=== PATIENT | female | born 1975 | race Caucasian/White ===

== ENCOUNTER 2016-11-14 09:38 | Observation (INO) ==
[~2016-11-14 09:38] MED LIST: LIDOCAINE W/ SODIUM BICARB 0.5 ML SYR ONE; LIDOCAINE W/ SODIUM BICARB 0.5 ML SYR SUBD ONE; Lactated Ringers 1,000 ML PRIMARY IV ONE; ROCURONIUM 10 MG/1 ML - 5 ML VIAL IVP ONE
[2016-11-14] MEDS ORDERED: MIDAZOLAM 5 MG/1 ML ONE (09:39)
[2016-11-14] MEDS ORDERED: LIDOCAINE MPF 2% - 5 ML (20 MG/1 ML) ONE (09:40)
[2016-11-14] MEDS ORDERED: PROPOFOL 10 MG/1 ML (200 MG/20 ML) VIAL IV ONE (09:40)
[2016-11-14] MEDS ORDERED: fentaNYL Inj 250 MCG/5 ML VIAL ONE (09:40)
[2016-11-14 09:55] LABS: URINE SPECIFIC GRAVITY - MAN 1.002
[2016-11-14] MEDS: Lactated Ringers 1,000 ML PRIMARY IV SCH ×3 (10:00→17:48)
[2016-11-14] MEDS ORDERED: Clindamycin 600mg (Premix) 600 MG/50 ML BAG IV ONE (10:23)
[2016-11-14] MEDS ORDERED: ceFAZolin Inj 1 GM in Sodium Chloride 0.9% 100 ML IV ONE (11:30)
[2016-11-14] MEDS ORDERED: BUPivacaine Inj 0.25% PF - 10ml vial ONE ×2 (11:33→11:35)
[2016-11-14] MEDS ORDERED: HYDROmorphone 2 MG/1 ML ONE (12:12)
[2016-11-14] MEDS ORDERED: EPINEPHrine Inj (1:1,000) 30mg/30ml vial ONE (12:33)
[2016-11-14] MEDS ORDERED: ROCURONIUM 10 MG/1 ML - 5 ML VIAL IVP ONE (13:20)
[2016-11-14] MEDS ORDERED: SUGAMMADEX SODIUM 200 MG/2 ML VIAL IV ONE (13:58)
[2016-11-14] MEDS ORDERED: fentaNYL Inj 100 MCG/2 ML VIAL IVP PRN (15:13)
[2016-11-14] MEDS ORDERED: NORMAL SALINE 10 ML SYRINGE FLUSH IVP PRN ×2 (15:13→15:47)
[2016-11-14] MEDS ORDERED: HYDROmorphone 2 MG/1 ML IVP PRN (15:13)
[2016-11-14] MEDS ORDERED: ONDANSETRON 4 MG/2 ML VIAL IVP PRN ×2 (15:13→15:47)
--- NOTE | 2016-11-14 15:16 | CRNA.PROGR ---
Anesthesia Time - - Start date: 11/14/16 End date: 11/14/16 - Procedure/Recovery Time Anesthesia : Time In: 11:27 Anesthesia : Time Out: 14:58 Anesthesia : Total Time: 211 - Total Anesthesia Time Total Anesthesia Time (minutes): 211 - Other Weight: 57.606 kg Height: 5 ft 5 in Body Mass Index (BMI): 21.1 Physical Status: P2 Anesthesia Type: General Anesthesia : ET
--- NOTE | 2016-11-14 15:16 | CRNA.PROGR ---
Anesthesia Recovery Phase I - Post Anesthesia Evaluation Patient's Condition on Arrival in Phase I: Stable Pain Level: 2
[2016-11-14] MEDS ORDERED: KETOROLAC 15 MG/1 ML VIAL IVP PRN (15:47)
[2016-11-14] MEDS ORDERED: LIDOCAINE HCL 2 % 10 ML JELLY URO-JECT TOPICAL PRN (15:47)
[2016-11-14] MEDS ORDERED: MORPHINE SULFATE 2 MG/1 ML IVP PRN (15:47)
[2016-11-14] MEDS: oxyCODONE-ACETAMINOPHEN 5-325 TAB PO PRN ×2 (16:25→21:14)
[2016-11-15] MEDS: Lactated Ringers 1,000 ML PRIMARY IV SCH (03:30)
[2016-11-15] MEDS: oxyCODONE-ACETAMINOPHEN 5-325 TAB PO PRN (06:55)
[2016-11-15 07:08] VITALS: BP 119/78; RESP 16; TEMP 98.1; O2SAT 97
[2016-11-15] MEDS ORDERED: ASPIRIN 325 MG EC TABLET PO SCH (09:00)
== END 2016-11-15 09:16 | disposition home or self-care (01) ==
LOC: OR 09:38 → MED/SURG 09:38
PROVIDERS: ADMIT Orthopaedic Surgery Sports Medicine; ATTEND Orthopaedic Surgery Sports Medicine